=== PATIENT | male | born 1960 ===

== ENCOUNTER 2020-06-09 08:12 | Outpatient (REF) | payer OTHER, SELFPAY ==
[2020-06-09 11:22] LABS: Alanine Aminotransferase 24 U/L (0-40); Albumin Level 4.2 g/dL (3.5-5.0); Alkaline Phosphatase 83 U/L (39-117); Anion Gap 16 (12-20); Aspartate Amino Transferase 15 U/L (5-37); Bilirubin Total 1.1 mg/dL (0.0-1.0); Blood Urea Nitrogen 14 mg/dL (9-16); Calcium 9.4 mg/dL (8.4-10.2); Carbon Dioxide 28 mmol/L (22-29); Chloride 99 mmol/L (96-108); Cholesterol 168 mg/dL; Estimated Glomerular Filt Rate > 60; Glucose Fasting 202 mg/dL (60-99); HDL Cholesterol 40 mg/dL; LDL Cholesterol Calculated 107 mg/dl; Potassium 3.5 mmol/l (3.3-5.1); Sodium 139 mmol/L (135-145); Total Protein 7.7 g/dL (6.5-8.0); Triglycerides 109 mg/dL
[2020-06-09 11:49] LABS: Prostate Specific Antigen Scr 0.18 ng/mL (<0.05-4.0); TSH reflex Free T4 2.81 mIU/mL (0.32-4.0)
[2020-06-09 12:23] LABS: Creatinine Urine 258.97 mg/dL; Microalbum/Creatinine Ratio Ur 5.7 ug/mg cr
== END 2020-06-09 08:13 | disposition home or self-care (01) ==
LOC: HO.WFDLDS 08:12
PROVIDERS: Visit Provider Family Medicine
DX: Z00.00 Encounter for general adult medical examination without abnormal findings (principal); Z12.5 Encounter for screening for malignant neoplasm of prostate
CPT/HCPCS: 36415; 80053; 80061; 82043; 84153; 84443

== ENCOUNTER 2022-07-08 08:43 | Outpatient (REF) | payer OTHER, SELFPAY ==
[2022-07-08 11:56] LABS: Appearance Urine Clear; Color Urine Yellow; Glucose Urine UA 250 mg/dL (Negative); Leukocyte Esterase Urine Negative (Negative); Nitrite Urine Negative (Negative); PH 5.5 (5.0-9.0); Specific Gravity - Urine 1.025 (1.005-1.025); Urine Blood Negative (Negative); Urine Ketones Negative (Negative); Urine Protein Negative (Neg-Trace)
[2022-07-08 12:16] LABS: Creatinine Urine 161.94 mg/dL; Microalbum/Creatinine Ratio Ur 4.3 ug/mg cr
[2022-07-08 12:22] LABS: Alanine Aminotransferase 32 U/L (0-40); Alkaline Phosphatase 86 U/L (39-117); Anion Gap 11 (12-20); Aspartate Amino Transferase 18 U/L (5-37); Bilirubin Total 0.7 mg/dL (0.0-1.0); Blood Urea Nitrogen 14 mg/dL (9-16); Carbon Dioxide 26 mmol/L (22-29); Chloride 103 mmol/L (96-108); Cholesterol 163 mg/dL; Estimated Glomerular Filt Rate > 60; Glucose Fasting 204 mg/dL (60-99); HDL Cholesterol 34 mg/dL; LDL Cholesterol Calculated 98 mg/dl; Sodium 136 mmol/L (135-145); Total Protein 7.1 g/dL (6.5-8.0); Triglycerides 159 mg/dL
[2022-07-08 12:23] LABS: Prostate Specific Antigen Scr 0.17 ng/mL (<0.05-4.0); TSH reflex Free T4 2.83 uIU/mL (0.32-4.0)
== END 2022-07-08 08:44 | disposition home or self-care (01) ==
LOC: HO.WFDLDS 08:43
PROVIDERS: Visit Provider Family Medicine
DX: Z00.00 Encounter for general adult medical examination without abnormal findings (principal); Z12.5 Encounter for screening for malignant neoplasm of prostate; I10 Essential (primary) hypertension
CPT/HCPCS: 36415; 80053; 80061; 81003; 82043; 84153; 84443

== ENCOUNTER → 2022-11-13 13:04 | Outpatient (BNVA) | payer OTHER, SELFPAY | PROVIDERS: PCP Family Medicine; Visit Provider Internal Medicine ==

== ENCOUNTER 2023-03-27 10:32 | Outpatient (AMB) | payer OTHER, SELFPAY ==
[2023-03-27 10:38] VITALS: BP 138/80; PULSE 82; O2SAT 99; BMI 35.4
--- NOTE | 2023-03-27 10:38 | A.OFFPC_ITS ---
Vital Signs 03/27/23 10:38 Height 5 ft 8 in Weight 233 lb 2 oz BMI 35.4 BP 138/80 Blood Pressure Location Lt brachial Position Sitting Pulse 82 Pulse Source Pulse Oximeter Pulse Oximetry (%) 99 Oxygen Delivery Method Room Air Intake Visit Reasons: f/u diabetes Intake Note: Patient is here to follow up on diabetes today. Patient would like a refill on his Metformin. Allergies shellfish derived Allergy (Intermediate, Verified 03/27/23 10:40) Anaphylaxis Medication List - Last Reconciled 03/27/23 by Lm Mckenna MD lisinopril-hydrochlorothiazide 20-12.5 mg 1 tab PO DAILY 90 days metformin 1,000 mg PO BID 90 days peg 3350-electrolytes 236-22.74-6.74 -5.86 gram (Golytely) 240 mL PO Q10M Tobacco use date assessed: 03/27/23 Dental Screening Dental Screen Date: 03/27/23 Did you have a dental visit in the last 12 months?: Yes Did you have a dental problem in the last 6 months where you did not have access to dental care?: No Was dental information given to patient?: Patient has dentist HPI f/u diabetes HPI Details 63 y/o male presents to f/u diabetes. A1c today 03/27/23 is 8.4%. He is on metformin 1000mg b.i.d. Pt notes he had misplaced his metformin 2-3 weeks ago. [facility] Medical History HTN (hypertension) Diabetes Surgical History Hx of colonoscopy Family History Mother Diabetes Father Cirrhosis Sister Diabetes Paternal Grandfather Colon cancer Maternal Grandmother Colon cancer Social History Household Members: Spouse Household Members Other:: daughter Housing: House Alcohol intake: current Alcohol intake frequency: holidays/special occasions only Patient Tobacco Use Status: Never used Tobacco e-Cigarette/Vaping Use: Never Used Second Hand Smoke Exposure: No service: No Current occupational status: retired Cognitive needs: No Hearing needs: No Vision needs: No Questionnaire PHQ-9 Over the last 2 weeks, how often have you been bothered by any of the following problems? 1. Little interest or pleasure in doing things: not at all 2. Feeling down, depressed, or hopeless: not at all 3. Trouble falling or staying asleep, or sleeping too much: not at all 4. Feeling tired or having little energy: not at all 5. Poor appetite or overeating: not at all 6. Feeling bad about yourself - or that you are a failure or have let yourself or your family down: not at all 7. Trouble concentrating on things, such as reading the newspaper or watching television: not at all 8. Moving or speaking so slowly that other people could have noticed. Or the opposite - being so fidgety or restless that you have been moving around a lot more than usual: not at all 9. Thoughts that you would be better off or of hurting yourself in some way: not at all Total score: 0 Source: Developed by Drs. Misha Vásquez, Nisreen Sol, Jose Deshpande and colleagues, with an educational mayo from [employer]. Thrive Questionnaire Date Thrive assessed: 03/27/23 I am a: Patient What is your living situation today?: I have a steady place to live Within the past 12 months, did the food you bought not last and you didn't have the money to get more?: Never true Within the past 12 months, did you worry whether your food would run out before you got money to buy more?: Never true Do you have trouble paying for medicines?: No Do you have trouble getting transportation to medical appointments?: No Do you have trouble paying your heating and electricity bill?: No Do you have trouble taking care of your child, family member or friend?: No Do you have trouble with day-to-day activities such as bathing, preparing meals, shopping, managing finances, etc.?: No Are you currently unemployed and looking for a job?: No Are you interested in more education?: No AUDIT C Alcohol Use Questionnaire (AUDIT-C) 1. How often do you have a drink containing alcohol?: Monthly or less 2. How many drinks containing alcohol do you have on a typical day when you are drinking?: 1 or 2 3. How often do you have six or more drinks on one occasion?: Never Total Score: 1 LUCRECIA-7 AMB Questionnaire LUCRECIA-7 Date LUCRECIA - 7 assessed: 03/27/23 Feeling nervous, anxious, or on edge: 0 = Not at all Not being able to stop or control worryin = Not at all Worrying too much about different things: 0 = Not at all Trouble relaxin = Not at all Being so restless that it is hard to sit still: 0 = Not at all Becoming easily annoyed or irritable: 0 = Not at all Feeling afraid as if something awful might happen: 0 = Not at all Total LUCRECIA-7 score (0-4 normal; 5-9 mild; 10-14 moderate; 15-21 severe): 0 Source: Developed by Drs. Misha Vásquez, Nisreen Sol, Jose Deshpande and colleagues, with an educational mayo from [employer]. Physical exam (Primary Care) Vital Signs: Last Vital Signs Pulse 82 03/27/23 10:38 BP 138/80 03/27/23 10:38 Pulse Ox 99 03/27/23 10:38 Oxygen Delivery Method Room Air 03/27/23 10:38 BMI result Body Mass Index 35.4 Tobacco/Smoking Status: Tobacco use Status Tobacco use date assessed 03/27/23 03/27/23 10:45 Patient Tobacco Use Status Never used Tobacco 03/27/23 10:45 e-Cigarette/Vaping Use Never Used 03/27/23 10:45 PHQ-9: PHQ-9 Score PHQ-9: Total score 0 03/27/23 10:58 Thrive Assessment: Date of Thrive Assessment Date Thrive assessed 03/27/23 03/27/23 10:54 Results AMB Hemoglobin A1c AMB Hemoglobin A1c 8.4 % Last Edit by Mayi Webb CMA on 03/27/23 11:04 Results Reviewed Results Reviewed: Laboratory Last Values Hgb A1c (Clinic) 8.4 % (4.0-6.0) H 03/27/23 11:03 Assessment and Plan Assessment & Plan (1) Diabetes: Code(s): E11.9 - Type 2 diabetes mellitus without complications Plan: Patient?missed?placed?his?metformin?2-3?weeks?ago?but?A1c?at?8.4?so?likely?would ?not?have?been?at?goal?of?less?than?7.0?anyway. He?has?wanted?to?avoid?taking?more?than?1?medication?for?diabetes. Will?increase?metformin?from?1000?mg?b.i.d.?to?850?mg?t.i.d.; 2550?mg?daily?dose We?discussed?that?we?may?still?need?to?us e?an?additional?medication?and?if?so?we?may?want?to?decrease?metformin?back?to?t his?prior?dose?and?add?and?increase?glipizide?and?patient?understands Also?advised?exercise,?weight?loss?and?a?diet?low?in?sugars?and?starches Orders: Orders AMB Hemoglobin A1c Today Z13.9 - Encounter for screening, unspecified Medications: New metformin 850 mg PO TID 270 tabs 1RF 90 days Refilled lisinopril-hydrochlorothiazide 20-12.5 mg 1 tab PO DAILY 90 tabs 3RF 90 days Discontinued metformin Discontinued Reason: Doctor's Order 1,000 mg PO BID 180 tabs 3RF 90 days Coding Level of Care Code Est Pt Level 3 (65747) Diagnoses Diabetes E11.9
== END 2023-03-27 11:19 | disposition home or self-care (01) ==
PROVIDERS: PCP Family Medicine; Visit Provider Family Medicine
DX: E11.9 Type 2 diabetes mellitus without complications (principal)
CPT/HCPCS: 83036; 99213

== ENCOUNTER 2023-05-13 10:32 | Outpatient (AMB) | payer OTHER, SELFPAY ==
[2023-05-13 10:38] VITALS: BP 132/70; PULSE 75; RESP 12; TEMP 36.4; O2SAT 99; BMI 34.7
--- NOTE | 2023-05-13 10:38 | A.OFFPC_ITS ---
Vital Signs 05/13/23 10:38 Height 5 ft 8 in Weight 228 lb 6 oz BMI 34.7 BP 132/70 Blood Pressure Location Rt brachial Position Sitting Respiration 12 Pulse 75 Pulse Source Pulse Oximeter Temp 97.5 F Temp Source Temporal Artery Scan Pulse Oximetry (%) 99 Oxygen Delivery Method Room Air Intake Visit Reasons: 05/03 Jesús Segovia Ruptured membrane On ear Intake Note: Patiemt states that [facility] had prescribed him something and insurance was kicking it back to [facility] to send an alternative approved by insurance and [facility] never got back to them. Patient never received medication that was needed for rupture ear. 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 Accompanied by: Self / Same As Patient Allergies shellfish derived Allergy (Intermediate, Verified 05/13/23 10:54) Anaphylaxis Medication List - Last Reconciled 05/13/23 by Milagros Connors CNP bisacodyl (Dulcolax (bisacodyl)) 20 mg (4 x 5 mg) PO ONCE 1 day lisinopril-hydrochlorothiazide 20-12.5 mg 1 tab PO DAILY 90 days metformin 850 mg PO TID 90 days peg 3350-electrolytes 236-22.74-6.74 -5.86 gram (Golytely) 240 mL PO Q10M simethicone (Gas Relief (simethicone)) 125 mg PO ONCE Tobacco use date assessed: 03/27/23 Dental Screening Dental Screen Date: 05/13/23 Did you have a dental visit in the last 12 months?: Yes Did you have a dental problem in the last 6 months where you did not have access to dental care?: No Was dental information given to patient?: Patient has dentist HPI HPI Comments History of Present Illness Details 63-year-old male presents for follow-up visit On 05/03/2023, he was evaluated and treated at [facility] ED for right ear pain and drainage. He reported some itching/discomfort in his right ear and stuck a Q-tip forcefully into his right ear and after he pulled the Q-tip out he noticed blood on the Q-tip. He endorsed increased pain in the right ear with some diminished hearing. He was diagnosed with traumatic right ear tympanic membrane rupture. He was discharged home on diclofenac oral capsule. He was informed that a referral to ENT specialist would be made and was advised to call to schedule a follow-up appointment. He was advised to keep the ear dry. He was informed that he may take up to 6 weeks for his eardrum to heal and that sometimes surgery may be necessary. He notes that he never received diclofenac because his health plan did not cover the medication. He denies pain, headache, or any acute symptoms. He notes he has been taking ibuprofen as needed. He states that he was not referred to an ENT specialist. [facility] Medical History (Updated 05/13/23 @ 11:08 by Milagros Connors CNP) HTN (hypertension) Diabetes Surgical History Hx of colonoscopy Family History Mother Diabetes Father Cirrhosis Sister Diabetes Paternal Grandfather Colon cancer Maternal Grandmother Colon cancer Social History Household Members: Spouse Household Members Other:: daughter Housing: House Alcohol intake: current Alcohol intake frequency: holidays/special occasions only Patient Tobacco Use Status: Never used Tobacco e-Cigarette/Vaping Use: Never Used Second Hand Smoke Exposure: No service: No Current occupational status: retired Cognitive needs: No Hearing needs: No Vision needs: No Questionnaire Thrive Questionnaire Date Thrive assessed: 03/27/23 LUCRECIA-7 AMB Questionnaire LUCRECIA-7 Date LUCRECIA - 7 assessed: 03/27/23 Source: Developed by Drs. Misha Vásquez, Nisreen Sol, Jose Deshpande and colleagues, with an educational mayo from [employer]. Review of Systems Const Details: Const Denies chills, Denies fatigue, Denies fever(s), Denies headache(s) and Denies weakness ENT Reports as per HPI Card Denies chest pain, Denies lightheadedness, Denies dyspnea and Denies other (Palpitations) Resp Denies cough, Denies dyspnea, Denies wheezing and Denies other ( shortness of breath) GI Denies abdominal pain, Denies melena, Denies hematochezia, Denies change in bowel habits, Denies dyspepsia and Denies nausea Denies hematuria and Denies dysuria Musc Denies abnormal gait, Denies myalgias, Denies arthralgias, Denies numbness and Denies tingling Skin/Breast Denies rash, Denies unusual bruising and Denies wounds Neuro Denies abnormal gait, Denies dizziness, Denies headache(s), Denies memory loss, Denies numbness, Denies Sensory deficit (Neuro), Denies tingling and Denies weakness Psych Denies anxiety, Denies depression, Denies memory loss Endo Denies cold intolerance, Denies fatigue, Denies heat intolerance, Denies polydipsia and Denies polyuria Aller/Immun Denies wheezing Physical exam (Primary Care) Vital Signs: Last Vital Signs Temp 97.5 F 05/13/23 10:38 Pulse 75 05/13/23 10:38 Resp 12 05/13/23 10:38 BP 132/70 05/13/23 10:38 Pulse Ox 99 05/13/23 10:38 Oxygen Delivery Method Room Air 05/13/23 10:38 BMI result Body Mass Index 34.7 Tobacco/Smoking Status: Tobacco use Status Tobacco use date assessed 03/27/23 03/27/23 10:45 Patient Tobacco Use Status Never used Tobacco 03/27/23 10:45 e-Cigarette/Vaping Use Never Used 03/27/23 10:45 Thrive Assessment: Date of Thrive Assessment Date Thrive assessed 03/27/23 03/27/23 10:54 Const Other: General: no acute distress and well developed Nutritional Appearance: well nourished Orientation/consciousness: patient oriented x3 HENMT Head is normocephalic Left ear canal and TM is normal. Old, dried blood noted on the right TM, no acute bleeding or drainage noted Nasal turbinates and oropharynx are pink and moist Sinuses are nontender with palpation No auricular or cervical lymphadenopathy Eyes General: appearance normal, both eyes and all related structures Pupils: Equal, round and reactive pupils present EOM: EOMs intact bilaterally Resp Effort & Inspection: normal respiratory effort Auscultation: clear to auscultation bilaterally Cardio Rate: regular rate Rhythm: regular rhythm Heart sounds: S1 normal heart sound present, S2 normal heart sound present, no gallops, no murmurs and no rubs GI Palpation (GI): No Abdominal aortic bruit present, Soft to palpation, nontender, No hepatosplenomegaly present and No Rebound tenderness present Auscultation: normal bowel sounds General: Yes no CVA tenderness Back/Spine/Pelvis Back: no CVA tenderness Cervical Spine: cervical ROM normal and No Cervical spine tenderness Thoracic/Lumbar Spine: thoraco-lumbar ROM normal, No pain with thoraco-lumbar ROM, No thoracic spinal tenderness and No lumbar spinal tenderness Extrem General: Yes normal to inspection, No edema and No calf tenderness Skin General: warm and dry. Normal skin color. Normal skin turgor Neuro General: patient oriented x3, gait normal and no focal neuro deficit Cranial nerves: Yes Equal, round and reactive pupils present Cognition (Neuro): normal cognition Gait exam (Neuro): Normal gait present Sensory Exam: No Sensory deficit (Neuro) Psych Appearance: grossly normal Affect: normal affect Attitude: cooperative Thought process: Normal thought process present Assessment and Plan Assessment & Plan (1) Traumatic rupture of right ear drum: Code(s): S09.21XA - Traumatic rupture of right ear drum, initial encounter Plan: Patient was evaluated and treated for traumatic rupture of right TM almost 2 weeks ago No acute symptoms at this time Old, dried blood noted on the right TM, no acute bleeding or drainage noted Referred to ENT Tylenol or ibuprofen as needed for pain or discomfort Advised to keep the ear dry and avoid inserting objects or Q-tip in the ear for proper healing Follow-up with symptoms or concerns Verbalized understanding and agreed with treatment plan Orders: Referrals Ear/Nose/Throat Referral S09.21XA - Traumatic rupture of right ear drum, initial encounter Coding Level of Care Code Est Pt Level 3 (44116) Diagnoses Traumatic rupture of right ear drum S09.21XA
== END 2023-05-13 11:13 | disposition home or self-care (01) ==
PROVIDERS: PCP Family Medicine; Visit Provider Nurse Practitioner Family
DX: S09.21XA Traumatic rupture of right ear drum, initial encounter (principal)
CPT/HCPCS: 99213

== ENCOUNTER 2023-08-21 08:08 | Day surgery (SDC) | payer OTHER, SELFPAY ==
[2023-08-21 08:40] VITALS: BP 167/100; PULSE 83; RESP 16; TEMP 36.6; O2SAT 98; BMI 36.0
[2023-08-21 08:54] LABS: Glucose, Whole Blood 160 mg/dL (60-115)
--- NOTE | 2023-08-21 09:56 | HO.ANESPROP2 ---
HPI - Anesthesia Eval Consult details Narrative: for colon PMFSH Active Problems Active Problems: All Active Problems (Updated 05/13/23 @ 11:08 by Milagros Connors CNP) Traumatic rupture of right ear drum (Acute) Diabetes (Acute) Family history of colon cancer (Acute) Need for hepatitis B screening test (Acute) Encounter for hepatitis C screening test for low risk patient (Acute) Low HDL (under 40) (Acute) Screening for colon cancer (Acute) Screening for prostate cancer (Acute) Annual physical exam (Acute) Diabetes type 2, controlled (Acute) Essential hypertension (Acute) Screening for prostate cancer (Acute) Laboratory examination ordered as part of a routine general medical examination (Acute) Past Medical History Medical History HTN (hypertension) Diabetes Family History Family History Mother Diabetes Father Cirrhosis Sister Diabetes Paternal Grandfather Colon cancer Maternal Grandmother Colon cancer Family history of problems with anesthesia: No Surgical History Surgical History Hx of colonoscopy History of Problems with Anesthesia: No Social History Social History Household Members: Spouse Household Members Other:: daughter Housing: House Alcohol intake: current Alcohol intake frequency: holidays/special occasions only Patient Tobacco Use Status: Never used Tobacco e-Cigarette/Vaping Use: Never Used Second Hand Smoke Exposure: No Use of substances other than those prescribed or required for medical reasons: No Are you DNR?: No Advance Directives: No Advance Directives Information Provided: Yes service: No Current occupational status: retired Cognitive needs: No Hearing needs: No Vision needs: No Meds Allergies Allergy/AdvReac Type Severity Reaction Status Date / Time shellfish derived Allergy Intermediate Anaphylaxis Verified 08/21/23 08:38 Exam Height,Weight and Vital Signs: Height 5 ft 8 in Weight 107.32 kg Last Vital Signs Temp 97.8 F 08/21/23 08:40 Pulse 83 08/21/23 08:40 Resp 16 08/21/23 08:40 BP 167/100 H 08/21/23 08:40 Pulse Ox 98 08/21/23 08:40 O2 Del Method Room Air 08/21/23 08:40 Pertinent Lab Results Pertinent Lab Results: Laboratory Tests 08/21/23 08:50 POC Glucose 160 H Airway Mallampati Class: II TM Dist: >3cm Neck ROM: Full Heart: rrr Lungs: cta Assessment and Plan Assessment Anesthesia Assessment: Anesthesia Plan Discussed Final Anesthetic Review Family History of Problems with Anesthesia: No History of Problems with Anesthesia: No NPO: Yes ASA Class: II Final Preanesthetic Review: No Changes in Pt Med Stat, Meds/Allgs Chart Reviewed, Consent Obtained/Reviewed and Anes Risks/Benef Reviewed Patient Risk: Intermediate Procedure Risk: Low Anesthetic Plan Anesthetic Plan: MAC: Disposition: Standard PACU
--- NOTE | 2023-08-21 10:01 | MHC.SHP ---
Pre-Procedural Eval Section A - 24 Hr Update-Section A only Date of Service: 08/21/23 Section B - Complete if H&P > 30 days Chief Complaint: Encounter for screening for malignant neoplasm of Details of Present Illness: PMH: Diabetes HTN (hypertension) Surgical History Hx of colonoscopy Allergies: Allergies Allergy/AdvReac Type Severity Reaction Status Date / Time shellfish derived Allergy Intermediate Anaphylaxis Verified 08/21/23 08:38 Review of Systems Review of Systems Comment: Ten point ROS negative Exam Exam Comment: Gen appear: No acute distress HEENT: no icterus Chest: No overt resp distress Abd: soft, nontender, nondistended Psych: Stable affect, answering questions appropriately Neuro: A/Ox3 noted to move all extremities spontaneously Ext: no peripheral edema Plan Diagnosis/Plan: Unchanged I have reviewed the history and physical and performed a pertinent physical examination on my patient. No changes have occurred unless specified. Time Spent With Patient Time: Total time managing care of this patient today ____ minutes.
--- NOTE | 2023-08-21 10:02 | P.OP_ITS ---
Operative Note Operative Note Date of Service: 08/21/23 Narrative: Procedure: Colonoscopy Indication: Screening Endoscopist: Tabitha Mendoza MD Anesthesia Provider: Dr Elizabeth Ortiz Anesthesia type: MAC Instrument: Olympus [id number]-[id number] Consent: Indication, risks vs benefits, and alternatives were discussed with the patient who gave written informed consent to proceed. EKG, pulse, pulse oximetry and blood pressure were monitored throughout the procedure. Please see anesthesia flowsheet. Procedure: The patient was brought to the procedure room and placed in the left lateral decubitus position. IV medications were administered by the anesthesia provider in attendance. A digital rectal exam was performed which was abnormal for external hemorrhoids. A distal attachment cap was affixed to the tip of the scope and the colonoscope was then inserted through the anus and advanced through the colon to the cecum at 75 cm,and terminal ileum. Appendiceal orifice and ileocecal valve were identified. Mucosa was carefully examined under high definition white light as the instrument was slowly withdrawn in a retrograde panoramic fashion. Retroflexion was performed in rectum. The procedure was not difficult. There were no immediate obvious complications. The quality of the prep was BBPS: 3+3+3 = excellent Withdrawal time 14 minutes. Limitations: No limitations. Findings: Mucosa: Normal to cecum and terminal ileum. Protruding lesions: * 2 sessile polyps of size 2 mm in transverse colon. Cold snare polypectomy was performed. The polyps were completely removed and retrieved. * 1 sessile polyp of size 7 mm in sigmoid colon. Cold snare polypectomy was performed. The polyp was completely removed and retrieved. * Medium internal hemorrhoids without stigmata of recent bleeding. Impression: 1. Normal colon and terminal ileum mucosa 2. Total of 3 polyps removed from transverse, and sigmoid colon. 3. External and internal hemorrhoids Recommendations: - Follow path results. - Repeat colonoscopy in 3 years if all 3 polyps are adenomas, otherwise 5 years.
[2023-08-21 10:37] VITALS: BP 109/63; PULSE 74; RESP 18; TEMP 36.6; O2SAT 99
[2023-08-21 10:52] VITALS: BP 120/72; PULSE 82; RESP 18; TEMP 36.4; O2SAT 82
== END 2023-08-21 11:25 | disposition home or self-care (01) ==
PROVIDERS: PCP Family Medicine; Visit Provider Internal Medicine
PROC: 0DJD8ZZ Inspection of Lower Intestinal Tract, Via Natural or Artificial Opening Endoscopic (ICD-10-PCS; CPT 45378; principal; 2023-08-21 09:30)
DX: Z12.11 Encounter for screening for malignant neoplasm of colon (principal); Z80.0 Family history of malignant neoplasm of digestive organs; D12.3 Benign neoplasm of transverse colon; D12.5 Benign neoplasm of sigmoid colon; K64.8 Other hemorrhoids; I10 Essential (primary) hypertension; E11.9 Type 2 diabetes mellitus without complications; Z79.84 Long term (current) use of oral hypoglycemic drugs; Z79.899 Other long term (current) drug therapy
CPT/HCPCS: 45385; 82947; 88305; J2704

== ENCOUNTER → 2023-08-21 08:08 | Outpatient (BNV) | payer OTHER, SELFPAY | PROVIDERS: PCP Family Medicine; Visit Provider Internal Medicine | DX: Z12.11 Encounter for screening for malignant neoplasm of colon (principal); D12.3 Benign neoplasm of transverse colon; D12.5 Benign neoplasm of sigmoid colon; K64.8 Other hemorrhoids | CPT/HCPCS: 45385 ==

== ENCOUNTER 2023-09-08 12:29 | Outpatient (REF) | payer OTHER, SELFPAY ==
[2023-09-09 09:17] LABS: HBS Num1 0.55 mIU/mL (0-7.99); HBc Num1 0.12 S/CO (0.00-0.79); HBsAGNum1 0.36 S/CO (0.00-0.99); Hepatitis B Core Antibody Nonreactive (Nonreactive); Hepatitis B Surface Antigen Negative (Negative); ~HepC Num1 0.15 S/CO (0.00-0.79); ~Hepatitis B Surface Antibody NONREACTIVE (Nonreactive); ~Hepatitis C Antibody Nonreactive (Nonreactive)
[2023-09-09 09:22] LABS: Hepatitis A Antibody IgG Nonreactive (Nonreactive); ~Hepatitis A Antibody IgG 0.36 S/CO (0.00-0.99)
== END 2023-09-08 12:30 | disposition home or self-care (01) ==
LOC: HO.HMGCLDS 12:29
PROVIDERS: PCP Family Medicine; Visit Provider Internal Medicine
DX: Z11.59 Encounter for screening for other viral diseases (principal); Z72.89 Other problems related to lifestyle
CPT/HCPCS: 36415; 86704; 86706; 86708; 86803; 87340

== ENCOUNTER → 2024-07-09 12:52 | Outpatient (BNVA) | payer OTHER, SELFPAY | PROVIDERS: PCP Family Medicine; Visit Provider Family Medicine | DX: Z01.818 Encounter for other preprocedural examination (principal); E11.65 Type 2 diabetes mellitus with hyperglycemia; I10 Essential (primary) hypertension | CPT/HCPCS: 83036 ==

== ENCOUNTER → 2024-07-09 12:52 | Outpatient (AMB) | payer OTHER, SELFPAY | END | disposition home or self-care (01) | PROVIDERS: PCP Family Medicine; Visit Provider Family Medicine ==

== ENCOUNTER 2024-07-21 07:54 | Outpatient (AMB) | payer OTHER, SELFPAY ==
--- NOTE | 2024-07-21 07:56 | A.OFFPC_ITS ---
Vital Signs 07/21/24 08:02 07/21/24 08:16 Height 5 ft 8 in Weight 232 lb 6 oz BMI 35.3 BP 158/90 H 150/90 H Blood Pressure Location Rt brachial Rt brachial Position Sitting Sitting Respiration 16 Pulse 88 84 Pulse Source Pulse Oximeter Auscultation Temp 97.8 F Temp Source Oral Pulse Oximetry (%) 100 Oxygen Delivery Method Room Air Intake Visit Reasons: cataract surgery right eye Intake Note: patient is scheduled for cataract surgery on left eye for friday and needs clearence. 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 Allergies shellfish derived Allergy (Intermediate, Verified 07/21/24 08:09) Anaphylaxis Medication List - Last Reconciled 07/21/24 by Milagros Connors CNP blood sugar diagnostic (FreeStyle Lite Strips) DX: E11.9, test blood sugar once a day, 90 days blood-glucose meter (FreeStyle Lite Meter kit) DX: E11.9, test blood sugar once a day, duration 999 days lancets (FreeStyle Lancets) As directed lisinopril-hydrochlorothiazide 20-12.5 mg 1 tab PO DAILY 90 days metformin 850 mg PO TID 90 days Tobacco use date assessed: 07/21/24 Dental Screening Dental Screen Date: 07/21/24 Did you have a dental visit in the last 12 months?: No Did you have a dental problem in the last 6 months where you did not have access to dental care?: No Was dental information given to patient?: Patient has dentist HPI HPI Comments History of Present Illness Details 64-year-old male presents for preop clinton lozano for cataract surgery of the left eye on 07/23/2024. He has history of type 2 diabetes and hypertension. He admits to taking his medications as prescribed without adverse reactions. He took his morning medications about an hour and a half ago. He is a patient of Dr. Mckenna. He was seen by his PCP on 07/09/2024 for preop clearance. His A1c was 11.6 and was not cleared for surgery. His metformin was increased and blood glucose meter with supplies were ordered for him to monitor his blood sugar and bring log to this appointment so he can be cleared if his blood sugar levels are optimized or controlled. His fasting glucose log since his last visit is as follows: 07/11 - 199, 07/12 - 179, 07/13 - 152, 07/14 - 188, 07/15 - 186, 07/16 - 163, 07/17 - 158, 07/18 149, 07/19 - 139, 07/20 - 215, 07/21 - 130. He offers no complaints and denies acute symptoms at this time. [facility] Medical History HTN (hypertension) Diabetes Surgical History Hx of colonoscopy Family History Mother Diabetes Father Cirrhosis Sister Diabetes Paternal Grandfather Colon cancer Maternal Grandmother Colon cancer Social History Household Members: Spouse Household Members Other:: daughter Housing: House Alcohol intake: current Alcohol intake frequency: holidays/special occasions only Patient Tobacco Use Status: Never used Tobacco e-Cigarette/Vaping Use: Never Used Second Hand Smoke Exposure: No service: No Current occupational status: retired Cognitive needs: No Hearing needs: No Vision needs: No Questionnaire Thrive Questionnaire Date Thrive assessed: 07/09/24 I am a: Patient What is your living situation today?: I have a steady place to live Within the past 12 months, did the food you bought not last and you didn't have the money to get more?: Never true Within the past 12 months, did you worry whether your food would run out before you got money to buy more?: Never true Do you have trouble paying for medicines?: No Do you have trouble getting transportation to medical appointments?: No Do you have trouble paying your heating and electricity bill?: No Do you have trouble taking care of your child, family member or friend?: No Do you have trouble with day-to-day activities such as bathing, preparing meals, shopping, managing finances, etc.?: No Are you currently unemployed and looking for a job?: No Are you interested in more education?: No Please select the resources that you would like help with: None Currently or been in a relationship where the following occur: No concerns reported THRIVE Score: 0 LUCRECIA-7 AMB Questionnaire LUCRECIA-7 Date LUCRECIA - 7 assessed: 03/27/23 Source: Developed by Drs. Misha Vásquez, Nisreen Sol, Jose Deshpande and colleagues, with an educational mayo from [employer] Review of Systems Const Details: Const Denies chills, Denies fatigue, Denies fever(s), Denies headache(s) and Denies weakness ENT Denies dizziness and Denies headache(s) Card Denies chest pain, Denies lightheadedness, Denies dyspnea and Denies other (Palpitations) Resp Denies cough, Denies dyspnea, Denies wheezing and Denies other ( shortness of breath) GI Denies abdominal pain, Denies melena, Denies hematochezia, Denies change in bowel habits, Denies dyspepsia and Denies nausea Denies hematuria and Denies dysuria Musc Denies abnormal gait, Denies myalgias, Denies arthralgias, Denies numbness and Denies tingling Skin/Breast Denies rash, Denies unusual bruising and Denies wounds Neuro Denies abnormal gait, Denies dizziness, Denies headache(s), Denies memory loss, Denies numbness, Denies Sensory deficit (Neuro), Denies tingling and Denies weakness Psych Denies anxiety, Denies depression, Denies memory loss Endo Denies cold intolerance, Denies fatigue, Denies heat intolerance, Denies polydipsia and Denies polyuria Aller/Immun Denies wheezing Physical exam (Primary Care) Tobacco/Smoking Status: Tobacco use Status Tobacco use date assessed 03/27/23 07/21/24 07:59 Patient Tobacco Use Status Never used Tobacco 07/21/24 07:59 e-Cigarette/Vaping Use Never Used 07/21/24 07:59 Thrive Assessment: Date of Thrive Assessment Date Thrive assessed 07/09/24 07/21/24 07:59 Currently or been in a relationship where the following occur: No concerns reported Const Other: General: no acute distress and well developed Nutritional Appearance: well nourished Orientation/consciousness: patient oriented x3 HENMT Head: Yes normocephalic and Yes atraumatic Eyes General: appearance normal, both eyes and all related structures Pupils: Equal, round and reactive pupils present EOM: EOMs intact bilaterally Resp Effort & Inspection: normal respiratory effort Auscultation: clear to auscultation bilaterally Cardio Rate: regular rate Rhythm: regular rhythm Heart sounds: S1 normal heart sound present, S2 normal heart sound present, no gallops, no murmurs and no rubs GI Palpation (GI): No Abdominal aortic bruit present, Soft to palpation, nontender, No hepatosplenomegaly present and No Rebound tenderness present Auscultation: normal bowel sounds General: Yes no CVA tenderness Back/Spine/Pelvis Back: no CVA tenderness Cervical Spine: cervical ROM normal and No Cervical spine tenderness Thoracic/Lumbar Spine: thoraco-lumbar ROM normal, No pain with thoraco-lumbar ROM, No thoracic spinal tenderness and No lumbar spinal tenderness Extrem General: Yes normal to inspection, No edema and No calf tenderness Skin General: warm and dry. Normal skin color. Normal skin turgor Neuro General: patient oriented x3, gait normal and no focal neuro deficit Cranial nerves: Yes Equal, round and reactive pupils present Cognition (Neuro): normal cognition Gait exam (Neuro): Normal gait present Sensory Exam: No Sensory deficit (Neuro) Psych Appearance: grossly normal Affect: normal affect Attitude: cooperative Thought process: Normal thought process present Coding Level of Care Code Est Pt Level 4 (90847) Diagnoses Preop examination Z01.818 Essential hypertension I10 Assessment & Plan Assessment & Plan (1) Preop examination: Code(s): Z01.818 - Encounter for other preprocedural examination Category: Medical Plan: Normal physical exam. No neurological deficit. Blood glucose for the past 10 days average between 130 and 199, above ADA goal of 80-130 Blood pressure is elevated, 150/90. Heart rate is 84. Lisinopril increased to 30 mg daily. He will follow-up in 1 month for hypertension. Patient not cleared for cataract surgery at this time. He will reschedule cataract surgery. (2) Essential hypertension: Code(s): I10 - Essential (primary) hypertension Category: Medical Plan: Resting blood pressure is 150/90, above goal of less than 130/80. Heart rate is 84. Lisinopril increased to 30 mg daily; advised to take as prescribed. Continue to take hydrochlorothiazide as prescribed. Low-sodium diet encouraged. He will start routine physical exercise which I encouraged. Follow-up with PCP in 1 month or sooner with symptoms or concerns. Verbalized understanding and agreed with treatment plan. Medications: New hydrochlorothiazide 12.5 mg PO DAILY 30 days 30 tabs 3RF lisinopril 30 mg PO DAILY 30 days 30 tabs 3RF Discontinued lisinopril-hydrochlorothiazide 20-12.5 mg Discontinued Reason: Doctor's Order 1 tab PO DAILY 90 days 90 tabs 3RF
[2024-07-21 08:02] VITALS: BP 158/90; PULSE 88; RESP 16; TEMP 36.6; O2SAT 100; BMI 35.3
[2024-07-21 08:16] VITALS: BP 150/90; PULSE 84
== END 2024-07-21 08:35 | disposition home or self-care (01) ==
PROVIDERS: PCP Family Medicine; Visit Provider Nurse Practitioner Family
DX: Z01.818 Encounter for other preprocedural examination (principal); I10 Essential (primary) hypertension

== ENCOUNTER → 2024-07-21 07:54 | Outpatient (BNVA) | payer OTHER, SELFPAY | PROVIDERS: PCP Family Medicine; Visit Provider Nurse Practitioner Family ==

== ENCOUNTER 2024-10-12 15:46 | Outpatient (AMB) | payer OTHER, SELFPAY ==
--- NOTE | 2024-10-12 16:00 | A.OFFPC_ITS ---
Vital Signs 10/12/24 16:05 Height 5 ft 8 in Weight 234 lb 4 oz BMI 35.6 BP 140/78 H Blood Pressure Location Lt brachial Position Sitting Respiration 15 Pulse 89 Pulse Source Pulse Oximeter Temp 98.5 F Temp Source Temporal Artery Scan Pulse Oximetry (%) 97 Oxygen Delivery Method Room Air Intake Visit Reasons: [address] Sarah MARCELO Intake Note: Brice presents in the office for a one month follow up for HTN Allergies shellfish derived Allergy (Intermediate, Verified 10/12/24 16:02) Anaphylaxis Medication List - Last Reconciled 10/12/24 by Lm Mckenna MD blood sugar diagnostic (FreeStyle Lite Strips) DX: E11.9, test blood sugar once a day, 90 days blood-glucose meter (FreeStyle Lite Meter kit) DX: E11.9, test blood sugar once a day, duration 999 days hydrochlorothiazide 25 mg PO DAILY 30 days lancets (FreeStyle Lancets) As directed lisinopril 30 mg PO DAILY 30 days metformin 850 mg PO TID 90 days Tobacco use date assessed: 10/12/24 Dental Screening Dental Screen Date: 10/12/24 Did you have a dental visit in the last 12 months?: No Did you have a dental problem in the last 6 months where you did not have access to dental care?: No Was dental information given to patient?: Patient declined HPI [address] Smith HTN HPI Details 64 y/o male presents to f/u HTN, diabete s. Last A1c in 07/09/24 11.6%. He is on metformin 850mg t.i.d. Blood pressure today 140/78, 89p. He is on lisinopril 30mg, HCTZ 12.5mg daily. [facility] Medical History HTN (hypertension) Diabetes Surgical History Hx of colonoscopy Family History Mother Diabetes Father Cirrhosis Sister Diabetes Paternal Grandfather Colon cancer Maternal Grandmother Colon cancer Social History (Updated 10/12/24 @ 16:04 by Ava Bradford MA) Household Members: Spouse Household Members Other:: daughter Housing: House Alcohol intake: current Alcohol intake frequency: holidays/special occasions only Patient Tobacco Use Status: Never used Tobacco e-Cigarette/Vaping Use: Never Used Second Hand Smoke Exposure: No Use of substances other than those prescribed or required for medical reasons: No service: No Current occupational status: retired Cognitive needs: No Hearing needs: No Vision needs: No Questionnaire PHQ-9 Over the last 2 weeks, how often have you been bothered by any of the following problems? 9. Thoughts that you would be better off or of hurting yourself in some way: not at all Source: Developed by Drs. Misha Vásquez, Nisreen Sol, Jose Deshpande and colleagues, with an educational mayo from [employer]. Thrive Questionnaire Date Thrive assessed: 10/12/24 I am a: Patient What is your living situation today?: I have a steady place to live Within the past 12 months, did the food you bought not last and you didn't have the money to get more?: Never true Within the past 12 months, did you worry whether your food would run out before you got money to buy more?: Never true Do you have trouble paying for medicines?: No Do you have trouble getting transportation to medical appointments?: No Do you have trouble paying your heating and electricity bill?: No Do you have trouble taking care of your child, family member or friend?: No Do you have trouble with day-to-day activities such as bathing, preparing meals, shopping, managing finances, etc.?: No Are you currently unemployed and looking for a job?: No Are you interested in more education?: No Please select the resources that you would like help with: None Currently or been in a relationship where the following occur: No concerns reported THRIVE Score: 0 AUDIT C Alcohol Use Questionnaire (AUDIT-C) 1. How often do you have a drink containing alcohol?: 2-4 times a month 2. How many drinks containing alcohol do you have on a typical day when you are drinking?: 1 or 2 3. How often do you have six or more drinks on one occasion?: Never Total Score: 2 Score Reviewed/Action Taken: No LUCRECIA-7 AMB Questionnaire LUCRECIA-7 Date LUCRECIA - 7 assessed: 10/12/24 Source: Developed by Jordon Vuet B.W. Ebenezer, Jose Deshpande and colleagues, with an educational mayo from [employer]. Review of Systems Const Denies chills, Denies fatigue, Denies fever(s), Denies headache(s) and Denies weakness ENT Denies dizziness and Denies headache(s) Card Denies dyspnea Resp Denies cough, Denies dyspnea, Denies wheezing and Denies other (shortness of breath) Musc Denies numbness and Denies tingling Neuro Denies dizziness, Denies headache(s), Denies numbness, Denies tingling and Denies weakness Psych Denies anxiety and Denies depression Endo Denies fatigue Aller/Immun Denies wheezing Physical exam (Primary Care) Vital Signs: Last Vital Signs Temp 98.5 F 10/12/24 16:05 Pulse 89 10/12/24 16:05 Resp 15 10/12/24 16:05 BP 140/78 H 10/12/24 16:05 Pulse Ox 97 10/12/24 16:05 Oxygen Delivery Method Room Air 10/12/24 16:05 BMI result Body Mass Index 35.6 Tobacco/Smoking Status: Tobacco use Status Tobacco use date assessed 10/12/24 10/12/24 16:04 Patient Tobacco Use Status Never used Tobacco 10/12/24 16:04 e-Cigarette/Vaping Use Never Used 10/12/24 16:04 Thrive Assessment: Date of Thrive Assessment Date Thrive assessed 10/12/24 10/12/24 16:08 Currently or been in a relationship where the following occur: No concerns reported Const General: well developed; No acute distress Nutritional Appearance: well nourished Orientation/consciousness: patient oriented x3 HENMT Head: Yes normocephalic and Yes atraumatic Eyes General: appearance normal, both eyes and all related structures Pupils: Equal, round and reactive pupils present EOM: EOMs intact bilaterally Resp Effort & Inspection: normal respiratory effort Neuro General: patient oriented x3 and gait normal Cranial nerves: Yes Equal, round and reactive pupils present Psych Affect: normal affect Coding Level of Care Code Est Pt Level 3 (76746) Diagnoses Essential hypertension I10 Diabetes type 2, controlled E11.9 Erectile dysfunction N52.9 Assessment & Plan Assessment & Plan (1) Essential hypertension: Code(s): I10 - Essential (primary) hypertension Category: Medical Plan: Blood?pressure?is?still?high Continue?lisinopril?30?mg?daily Increasing?hydrochlorothiazide?from?12.5?mg?daily?to?25?mg?daily He?is?coming?back?on?Friday?to?follow-up?on?blood?sugars?and?we ?can?recheck?his?blood?pressure?as?well (2) Diabetes type 2, controlled: Code(s): E11.9 - Type 2 diabetes mellitus without complications Category: Medical Plan: A1c?was?11.6%?in?July. He?is?on?metformin?850?mg?t.i.d. He?has?an?appointment?on?Friday Continue?metformin?follow-up?on?Friday?will?recheck?A1c?at?that?time (3) Erectile dysfunction: Code(s): N52.9 - Male erectile dysfunction, unspecified Category: Medical Plan: Can?trial?sildenafil Risks/benefits?discussed Medications: Changed From hydrochlorothiazide 12.5 mg PO DAILY 30 days 30 tabs 1RF To hydrochlorothiazide 25 mg PO DAILY 30 days 30 tabs 3RF
[2024-10-12 16:05] VITALS: BP 140/78; PULSE 89; RESP 15; TEMP 36.9; O2SAT 97; BMI 35.6
== END 2024-10-12 16:38 | disposition home or self-care (01) ==
LOC: HO.HMCFM 15:47
PROVIDERS: PCP Family Medicine; Visit Provider Family Medicine
DX: I10 Essential (primary) hypertension (principal); E11.9 Type 2 diabetes mellitus without complications; N52.9 Male erectile dysfunction, unspecified

== ENCOUNTER → 2024-10-12 15:46 | Outpatient (BNVA) | payer OTHER, SELFPAY | PROVIDERS: PCP Family Medicine; Visit Provider Family Medicine | DX: Z12.31 Encounter for screening mammogram for malignant neoplasm of breast (principal) ==

== ENCOUNTER 2024-10-15 08:42 | Outpatient (AMB) | payer OTHER, SELFPAY ==
--- NOTE | 2024-10-15 08:45 | MHC.PC.OV ---
Vital Signs 10/15/24 08:53 Height 5 ft 8 in Weight 231 lb 8 oz BMI 35.2 BP 140/78 H Blood Pressure Location Lt brachial Position Sitting Pulse 97 Pulse Source Pulse Oximeter Temp 98.6 F Temp Source Temporal Artery Scan Pulse Oximetry (%) 98 Oxygen Delivery Method Room Air Intake Visit Reasons: f/u diabetes Intake Note: Brice presents in the office today for his diabetes. Allergies shellfish derived Allergy (Intermediate, Verified 10/15/24 08:47) Anaphylaxis Medication List - Last Reconciled 10/15/24 by Lm Mckenna MD blood sugar diagnostic (FreeStyle Lite Strips) DX: E11.9, test blood sugar once a day, 90 days blood-glucose meter (FreeStyle Lite Meter kit) DX: E11.9, test blood sugar once a day, duration 999 days hydrochlorothiazide 25 mg PO DAILY 30 days lancets (FreeStyle Lancets) As directed lisinopril 30 mg PO DAILY 30 days metformin 850 mg PO TID 90 days Tobacco use date assessed: 10/15/24 Dental Screening Dental Screen Date: 10/15/24 Did you have a dental visit in the last 12 months?: Yes Did you have a dental problem in the last 6 months where you did not have access to dental care?: No Was dental information given to patient?: Patient has dentist HPI f/u diabetes HPI Details 64 y/o male presents to f/u diabetes. Also checking HTN as I increased his hydrochlorothiazide last office visit. Last A1c 07/09/24 11.6%. A1c today 10/15/24 is BP today 140/78, 97p. He is on [id number], HCTZ 25mg daily. HPI Comments History of Present Illness Details Documentation assistance for Lm Mckenna MD, was provided by Tone Moore,? Instrument Installer on 10/15/2024 at 9:06 AM EST. I, Dr. Mckenna, have read, observed, and verified documentation. PFSH Medical History HTN (hypertension) Diabetes Surgical History Hx of colonoscopy Family History (Updated 10/15/24 @ 08:49 by Ava Bradford MA) Mother Diabetes Father Cirrhosis Sister Diabetes Paternal Grandfather Colon cancer Maternal Grandmother Colon cancer Social History (Updated 10/15/24 @ 08:50 by Ava Bradford MA) Household Members: Spouse Household Members Other:: daughter Housing: House Alcohol intake: current Alcohol intake frequency: holidays/special occasions only Patient Tobacco Use Status: Never used Tobacco e-Cigarette/Vaping Use: Never Used Second Hand Smoke Exposure: No service: No Current occupational status: retired Cognitive needs: No Hearing needs: No Vision needs: No Questionnaire PHQ-9 Over the last 2 weeks, how often have you been bothered by any of the following problems? 1. Little interest or pleasure in doing things: not at all 2. Feeling down, depressed, or hopeless: not at all 3. Trouble falling or staying asleep, or sleeping too much: not at all 4. Feeling tired or having little energy: not at all 5. Poor appetite or overeating: not at all 6. Feeling bad about yourself - or that you are a failure or have let yourself or your family down: not at all 7. Trouble concentrating on things, such as reading the newspaper or watching television: not at all 8. Moving or speaking so slowly that other people could have noticed. Or the opposite - being so fidgety or restless that you have been moving around a lot more than usual: not at all 9. Thoughts that you would be better off or of hurting yourself in some way: not at all Total score: 0 Depression Screening Interpretation: Negative Depression Screening Done: Yes 70807 - PHQ-9 Billing: Yes Source: Developed by Drs. Misha Vásquez, Nisreen Sol, Jose Deshpande and colleagues, with an educational mayo from [employer]. Thrive Questionnaire Date Thrive assessed: 10/15/24 I am a: Patient What is your living situation today?: I have a steady place to live Within the past 12 months, did the food you bought not last and you didn't have the money to get more?: Never true Within the past 12 months, did you worry whether your food would run out before you got money to buy more?: Never true Do you have trouble paying for medicines?: No Do you have trouble getting transportation to medical appointments?: No Do you have trouble paying your heating and electricity bill?: No Do you have trouble taking care of your child, family member or friend?: No Do you have trouble with day-to-day activities such as bathing, preparing meals, shopping, managing finances, etc.?: No Are you currently unemployed and looking for a job?: No Are you interested in more education?: No Please select the resources that you would like help with: None Currently or been in a relationship where the following occur: No concerns reported THRIVE Score: 0 AUDIT C Alcohol Use Questionnaire (AUDIT-C) 1. How often do you have a drink containing alcohol?: Monthly or less 2. How many drinks containing alcohol do you have on a typical day when you are drinking?: 1 or 2 3. How often do you have six or more drinks on one occasion?: Never Total Score: 1 Score Reviewed/Action Taken: No LUCRECIA-7 AMB Questionnaire LUCRECIA-7 Date LUCRECIA - 7 assessed: 10/15/24 Feeling nervous, anxious, or on edge: 0 = Not at all Not being able to stop or control worryin = Not at all Worrying too much about different things: 0 = Not at all Trouble relaxin = Not at all Being so restless that it is hard to sit still: 0 = Not at all Becoming easily annoyed or irritable: 0 = Not at all Feeling afraid as if something awful might happen: 0 = Not at all Total LUCRECIA-7 score (0-4 normal; 5-9 mild; 10-14 moderate; 15-21 severe): 0 Source: Developed by Drs. Misha Vásquez, Nisreen Sol, Jose Deshpande and colleagues, with an educational mayo from [employer]. LUCRECIA-7 Assessment Billing LUCRECIA-7 Assessment Tool: LUCRECIA-7 Assessment 96876 Review of Systems Const Denies chills, Denies fatigue, Denies fever(s), Denies headache(s) and Denies weakness ENT Denies dizziness and Denies headache(s) Card Denies dyspnea Resp Denies cough, Denies dyspnea, Denies wheezing and Denies other (shortness of breath) Musc Denies numbness and Denies tingling Neuro Denies dizziness, Denies headache(s), Denies numbness, Denies tingling and Denies weakness Psych Denies anxiety and Denies depression Endo Denies fatigue Aller/Immun Denies wheezing Physical exam (Primary Care) Vital Signs: Last Vital Signs Temp 98.6 F 10/15/24 08:53 Pulse 97 10/15/24 08:53 BP 140/78 H 10/15/24 08:53 Pulse Ox 98 10/15/24 08:53 Oxygen Delivery Method Room Air 10/15/24 08:53 BMI result Body Mass Index 35.2 Tobacco/Smoking Status: Tobacco use Status Tobacco use date assessed 10/15/24 10/15/24 08:57 Patient Tobacco Use Status Never used Tobacco 10/15/24 08:50 e-Cigarette/Vaping Use Never Used 10/15/24 08:50 PHQ-9: PHQ-9 Score PHQ-9: Total score 0 10/15/24 08:58 Depression Screening Interpretation: Negative Thrive Assessment: Date of Thrive Assessment Date Thrive assessed 10/15/24 10/15/24 08:57 Currently or been in a relationship where the following occur: No concerns reported Const General: well developed; No acute distress Nutritional Appearance: well nourished Orientation/consciousness: patient oriented x3 HENMT Head: Yes normocephalic and Yes atraumatic Eyes General: appearance normal, both eyes and all related structures Pupils: Equal, round and reactive pupils present EOM: EOMs intact bilaterally Resp Effort & Inspection: normal respiratory effort Auscultation: clear to auscultation bilaterally Cardio Rate: regular rate Rhythm: regular rhythm Heart sounds: S1 normal heart sound present, S2 normal heart sound present, no gallops, no murmurs and no rubs Neuro General: patient oriented x3 and gait normal Cranial nerves: Yes Equal, round and reactive pupils present Psych Affect: normal affect Results AMB Hemoglobin A1c AMB Hemoglobin A1c 7.6 % Last Edit by Ava Bradford MA on 10/15/24 09:11 Coding Level of Care Code Est Pt Level 3 (89573) Diagnoses Diabetes type 2, controlled E11.9 Essential hypertension I10 Additional Codes LUCRECIA-7 Assessment Billing - LUCRECIA-7 Assessment Tool: LUCRECIA-7 Assessment 25003 ([id number]) PHQ-9 - 85196 - PHQ-9 Billing: Yes ([id number]) Assessment & Plan Assessment & Plan (1) Diabetes type 2, controlled: Code(s): E11.9 - Type 2 diabetes mellitus without complications Category: Medical Plan: A1c?is?significantly?improved?from?11.6%?down?to?7.6%?after adjusting?his?metformin?to?850?mg?t.i.d..??Goal?is?less?than?7.0% We?discussed?adding?a?2nd?medication?but?patient?wants?to?work?at?lifestyle?changes Advised?diet?low?in?sugars?and?starches Advised?exercise?and?weight?loss Follow-up?in?3?months Patient?had?an?eye?exam?in?June (2) Essential hypertension: Code(s): I10 - Essential (primary) hypertension Category: Medical Plan: Blood?pressure?is?slightly?above?goal?of?less?than?140/90 Had?adjusted?hydrochlorothiazide?from?12.5?mg?daily?to?25?mg?daily?at?last?visit?and?continues?lisinopril?30?mg?daily. He?only?just?increased?his?hydrochlorothiazide?yesterday Advised?him?to?take?medication?as?prescribed, avoid?salt/sodium?and?work?at?exercise?and?weight?loss Will?follow-up?in?3?months Orders: Orders AMB Hemoglobin A1c Today E11.65 - Type 2 diabetes mellitus with hyperglycemia, E11.9 - Type 2 diabetes mellitus without complications
[2024-10-15 08:53] VITALS: BP 140/78; PULSE 97; TEMP 37; O2SAT 98; BMI 35.2
== END 2024-10-15 09:13 | disposition home or self-care (01) ==
LOC: HO.HMCFM 08:43
PROVIDERS: PCP Family Medicine; Visit Provider Family Medicine
DX: E11.9 Type 2 diabetes mellitus without complications (principal); I10 Essential (primary) hypertension; E11.65 Type 2 diabetes mellitus with hyperglycemia

== ENCOUNTER → 2024-10-15 08:42 | Outpatient (BNVA) | payer OTHER, SELFPAY | PROVIDERS: PCP Family Medicine; Visit Provider Family Medicine | DX: E11.9 Type 2 diabetes mellitus without complications (principal); I10 Essential (primary) hypertension | CPT/HCPCS: 83036; 96127 ==